=== PATIENT | male | born 1985 | race Caucasian/White ===

== ENCOUNTER 2019-10-30 16:02 | Observation (INO) ==
[~2019-10-30 16:02] MED LIST: DEXAMETHASONE PF 10 MG/1 ML VIAL ONE; LIDOCAINE W/ SODIUM BICARB 0.5 ML SYR ONE; LIDOCAINE W/ SODIUM BICARB 0.5 ML SYR SUBD PRN; Lactated Ringers 1,000 ML PRIMARY IV ONE
[2019-10-30] MEDS: Lactated Ringers 1,000 ML PRIMARY IV SCH ×2 (16:30→23:40)
[2019-10-30] MEDS ORDERED: fentaNYL Inj 250 MCG/5 ML VIAL ONE (19:02)
[2019-10-30] MEDS ORDERED: ceFAZolin 1 GM VIAL ONE (19:03)
[2019-10-30] MEDS ORDERED: PROPOFOL 10 MG/1 ML (200 MG/20 ML) VIAL IV ONE (19:06)
[2019-10-30] MEDS ORDERED: ceFAZolin 1 GM VIAL IV ONE (19:08)
[2019-10-30] MEDS ORDERED: HYDROcodone/APAP 7.5/325/15ml 15 ML CUP PO PRN (19:28)
[2019-10-30] MEDS ORDERED: Non-Formulary Drug (Tetracaine 0.5% Lollipop 1 LOZENGE) PO PRN (19:45)
[2019-10-30] MEDS ORDERED: HYDROcodone/APAP 7.5/325/15ml 15 ML CUP ONE (19:54)
[2019-10-30] MEDS ORDERED: ONDANSETRON 4 MG/2 ML VIAL IVP PRN (20:47)
[2019-10-30] MEDS: CARBAMAZEPINE PO SCH (20:52)
[2019-10-30] MEDS: FAMOTIDINE 20 MG TABLET PO SCH (21:04)
[2019-10-30] MEDS: D5-1/2NS 1,000 ML PRIMARY IV SCH (21:54)
[2019-10-30] MEDS: HYDROcodone/APAP 7.5/325/15ml 15 ML CUP PO PRN (23:01)
[2019-10-31] MEDS: HYDROcodone/APAP 7.5/325/15ml 15 ML CUP PO PRN ×3 (03:32→12:10)
[2019-10-31] MEDS: CARBAMAZEPINE PO SCH (10:15)
[2019-10-31] MEDS: FAMOTIDINE 20 MG TABLET PO SCH (10:43)
[2019-10-31 11:47] VITALS: BP 126/100; RESP 21; TEMP 97.8; O2SAT 97
[2019-10-31] MEDS: D5-1/2NS 1,000 ML PRIMARY IV SCH (12:12)
== END 2019-10-31 13:23 | disposition home or self-care (01) ==
LOC: OR 16:02 → MED/SURG 16:02 → OPS 17:10 → MED/SURG 19:52
PROVIDERS: ADMIT Otolaryngology; ATTEND Otolaryngology